=== PATIENT | female | born 1940 | race Caucasian/White ===

== ENCOUNTER → 2017-02-26 | Outpatient (CLI) | payer MEDICARE, BC ==
--- NOTE | 2017-02-26 15:42 | RADRPT ---
PROCEDURE: RIGHT knee x-ray CLINICAL INDICATION: PAIN TECHNIQUE: AP weightbearing, sunrise, oblique and lateral views of the knee were obtained. COMPARISON: None FINDINGS: The soft tissues and bony elements are normal. No joint space effusion is noted. The joint spaces a re normal. IMPRESSION: Normal x-ray of the right knee. RPTAT:AAJJ Physician Pilar Date Time Electronically viewed and signed by Rickie Carter Physician on 02/26/2017 15:42 /
== END | disposition home or self-care (01) ==
LOC: HKI 15:39
PROVIDERS: ATTEND Orthopaedic Surgery
DX: M25.561 Pain in right knee (principal)
CPT/HCPCS: G0463

== ENCOUNTER → 2017-04-18 | Outpatient (CLI) | payer MEDICARE, BC ==
[~2017-04-18] MED LIST: EST42.5C VAG; ESTR50G TD; LOSA25TA5 PO
== END | disposition home or self-care (01) ==
LOC: HKI 09:24
PROVIDERS: ATTEND Orthopaedic Surgery
DX: M25.561 Pain in right knee (principal); S83.231A Complex tear of medial meniscus, current injury, right knee, initial encounter
CPT/HCPCS: G0463

== ENCOUNTER 2017-04-24 09:47 | Day surgery (SDC) | payer MEDICARE, BC ==
[2017-04-24] VITALS (12 sets, daily range): BP systolic 112–158; BP diastolic 51–73; PULSE 75–94; RESP 10–25
[~2017-04-24] VITALS: Ht 300.5 cm; Wt 57.6 kg
[~2017-04-24 09:47] MED LIST changes: +CEFAZOLIN 2GM/50 ML (PMX) 50 ML X1 BEFORE INCISION IVPB SCH; +CELECOXIB 400 MG PO X1 DOSE PO SCH; -EST42.5C VAG; -ESTR50G TD; +LACTATED RINGER'S 1,000 ML IV SCH; -LOSA25TA5 PO; +PREGABALIN 300 MG PO X1 PO SCH; +SUGAMMADEX SODIUM 200 MG/2 ML VIAL IV ONE; +oxyCODONE (CR) 10 MG TAB [oxyCONTIN] X1 DOSE PO SCH; +traMADOL 50 MG TAB X 1 DOSE PO SCH
[2017-04-24] MEDS ORDERED: LOSA25TA5 PO (10:31)
[2017-04-24] MEDS ORDERED: ESTR50G TD (10:32)
[2017-04-24] MEDS ORDERED: EST42.5C VAG (10:33)
[2017-04-24] MEDS ORDERED: ONDANSETRON 4 MG INJ IV STA (11:09)
[2017-04-24] MEDS ORDERED: PROPOFOL 20 ML ONE (11:16)
[2017-04-24] MEDS ORDERED: CEFAZOLIN 1 GM INJ ONE (11:16)
[2017-04-24] MEDS ORDERED: GLYCOPYRROLATE 0.4 MG INJ ONE (11:16)
[2017-04-24] MEDS ORDERED: NEOSTIGMINE 3 MG/3 ML SYRINGE ONE (11:16)
[2017-04-24] MEDS ORDERED: ROCURONIUM 50 MG INJ ONE (11:16)
[2017-04-24] MEDS ORDERED: MIDAZOLAM 1 MG/ML 2 ML INJ ONE (11:16)
[2017-04-24] MEDS ORDERED: ONDANSETRON 4 MG INJ ONE (11:17)
[2017-04-24] MEDS ORDERED: FENTAnyl 50 MCG/ML VIAL ONE (11:17)
[2017-04-24] MEDS ORDERED: DEXAMETHASONE 4 MG/ML 1 ML INJ ONE (11:17)
--- NOTE | 2017-04-24 12:49 | HPN ---
Date/Time of Note Date/Time of Note DATE: 04/24/17 TIME: 12:48 Interval H&P Admission Note Pt. seen H&P reviewed: No system changes No changes from H&P on 04/17/17 by GALDINO Heard MD Apr 24, 2017 12:49
[2017-04-24] MEDS ORDERED: morphine SULFATE/PF (10 MG/10 ML) INJ ONE (12:58)
[2017-04-24] MEDS ORDERED: ROPIVACAINE 0.5 % 30 ML VIAL ONE (12:58)
[2017-04-24] MEDS ORDERED: KETOROLAC 30 MG INJ ONE (12:58)
[2017-04-24] MEDS ORDERED: LIDOCAINE 1% (MPF) 30 ML INJ ONE (12:58)
[2017-04-24] MEDS ORDERED: LABETALOL HCL 20MG INJ IV PRN (13:30)
[2017-04-24] MEDS ORDERED: DIPHENHYDRAMINE 50 MG INJ IV PRN (13:30)
[2017-04-24] MEDS ORDERED: MEPERIDINE 25 MG INJ IV PRN (13:30)
[2017-04-24] MEDS ORDERED: OXYCODONE/ACETAMINOPHEN (5/325) TAB PO PRN ×2 (13:30)
[2017-04-24] MEDS ORDERED: TRIMETHOBENZAMIDE 100 MG/ML VIAL IM PRN (13:30)
[2017-04-24] MEDS ORDERED: MIDAZOLAM 1 MG/ML 2 ML INJ IV PRN (13:30)
[2017-04-24] MEDS ORDERED: EPHEDrine SULFATE 50 MG/5 ML SYG IV PRN (13:30)
[2017-04-24] MEDS ORDERED: ONDANSETRON 4 MG INJ IV PRN (13:30)
[2017-04-24] MEDS ORDERED: HYDROmorphONE (0.2 MG/ML) 10ML SYG IV PRN ×3 (13:30)
[2017-04-24] MEDS ORDERED: FENTAnyl 50 MCG/ML VIAL IV PRN ×3 (13:30)
[2017-04-24] MEDS ORDERED: hydrALAzine 20 MG INJ IV PRN (13:30)
--- NOTE | 2017-04-24 14:54 | OPR ---
Date/Time of Note Date/Time of Note DATE: 04/24/17 TIME: 14:53 Operative Report Free Text/Dictation Dictation # [id number] Preoperative Diagnosis Right Knee MM Tear Postoperative Diagnosis Right Knee MM and LM Tear Operation/Procedure Performed Right Knee A/S and Partial MM and LM Surgeon: GALDINO EDWARD MD Anesthesia: general Estimated Blood Loss: none Complications: None GALDINO EDWARD MD Apr 24, 2017 14:54
[2017-04-24] MEDS ORDERED: ESTRADIOL XX SCH (15:00)
--- NOTE | 2017-04-24 15:22 | OPR ---
DATE OF OPERATION: 04/24/2017 PREOPERATIVE DIAGNOSIS: Right knee medial meniscal tear. POSTOPERATIVE DIAGNOSIS: Right knee medial meniscus tear and free edge tearing of lateral meniscus. PROCEDURE: Right knee arthroscopy, partial medial and lateral meniscectomies. SURGEON: Galdino Dailey MD ANESTHESIA: General endotracheal intubation. ANESTHESIOLOGIST: Dr. Taylor. TOURNIQUET TIME: 0 minutes. ESTIMATED BLOOD LOSS: Scant. INTRAVENOUS FLUIDS: 800 mL crystalloid. SPECIMENS: None. DRAINS: None. COMPLICATIONS: None. DISPOSITION: The patient tolerated the procedure well and was taken to the recovery room in stable condition. INDICATIONS: The patient is a 76-year-old woman who has had pain in the right knee with mechanical symptoms of catching and popping. An MRI arthrogram revealed a recurrent medial meniscus tear. I f elt she would benefit from a knee arthroscopy and partial medial meniscectomy. The risks, benefits, and alternatives of the procedure were explained in detail to the patient. I explained the risks t o include but not be limited to bleeding, infection, pain, stiffness, neurovascular injury, possible numbness, weakness, and/or paralysis anywhere from the knee down to the toes, fracture, ligamentous injury, need for additional future surgery including possible total knee arthroplasty, wound healin g problems, blood clots, pulmonary embolism, and anesthetic complications such as heart attack, stro ke, GI bleed, pneumonia, and/or . Ample time was allowed for the patient to ask questions, all of which were addressed and answered. The patient understood the risks involved and wished to proc eed. Informed consent was signed prior to the procedure. DESCRIPTION OF PROCEDURE: The right knee was initialed with a marking pen in the preoperative holdi ng area to identify the correct operative site. The patient was then brought to the operating room and transferred [facility] to the operating table where she was anesthetized and intub ated. Time out was performed to confirm the right side was the correct operative site. The superol ateral aspect of the right knee was prepped with Betadine and injected 30 mL of 0.5% ropivacaine wit h epinephrine into the knee joint. A tourniquet was placed on the right proximal thigh. The entire right knee and lower extremity were prepped and draped in usual sterile fashion. The patient had b een given 2 grams of intravenous Ancef within 1 hour prior to the incision. Standard arthroscopic portal incisions were made. The arthroscope was introduced into the inferolat eral portal and the arthroscopy initiated. The suprapatellar pouch was inspected and free of loose bodies and synovitis. The undersurface of the patella looked healthy with mild grade II chondromala danuta. The patella tracked well with no tilt or subluxation. The medial and lateral gutters were ins pected and free of loose bodies and synovitis. The medial compartment was then inspected, and there was a large diffuse area of the weightbearing aspect of the medial femoral condyle with grade IV ch ondromalacia. There was a tear of the medial meniscus extending from the posterior horn to the body . This was debrided back to a stable edge with a combination of the biter shaver and Arthrocare wan d. It was probed and was stable. There was some grade II chondromalacia along the medial tibial pl ateau. The inner trochlear notch was inspected, and the ACL and PCL were in normal position. The l ateral compartment was inspected, and there was some free edge tearing of the lateral meniscus which was debrided back to a stable edge with the shaver and Arthrocare wand. The lateral femoral condyl e and lateral tibial plateau looked healthy with no degenerative changes. At this point, the knee w as irrigated through the arthroscope until the egress of fluid was free of meniscal fragments and bl ood. The instruments were removed. The knee was injected with a mixture of 0.5% ropivacaine, 4 mg Duramorph, and 30 mg Toradol. The portal incisions were closed with interrupted 3-0 Monocryl and 3- 0 Prolene in a vertical mattress fashion. Skin edges were sealed with Dermabond. The wounds were c overed with Adaptic, 4 x 4s, and wrapped in sterile cast padding and an Tiburcio wrap. The patient was a wakened, extubated, and taken to the recovery room in stable condition. Dictated By: GALDINO OROZCO/MAMADOU Conf#: [id number] DID#: [id number]
--- NOTE | 2017-04-25 07:03 | HP ---
DATE OF ADMISSION: 04/24/2017 HISTORY OF PRESENT ILLNESS: The patient is a 76-year-old female with diagnosis of a right knee medi al meniscal tear, scheduled for right knee arthroscopic partial medial meniscectomy to be performed by Dr. Galdino Edward at [facility] on 04/24/2017. The patient has hypertension, mitral regurgitation as well as aortic regurgitation, and has been fol lowed by Dr. Jonas Oreilly, cardiology, in the past. She last saw Dr. Oreilly on 10/17/2016. The [place] has been noted to have 1+ aortic insufficiency, 2+ mitral regurgitation and atrial septal aneu rysm on 2D echocardiography. The patient has no acute cardiorespiratory symptoms. PAST MEDICAL HISTORY: Usual childhood diseases. PAST SURGICAL HISTORY: Cosmetic surgery, tubal ligation, D and C, and hysterectomy. MEDICATIONS: 1. Cozaar 25 mg daily. 2. Estrogel daily topically. 3. Estrace cream once a week. SOCIAL HISTORY: Tobacco: Quit smoking many years ago. Alcohol: Rare, social. ALLERGIES: THE PATIENT IS ALLERGIC TO: 1. NEOSPORIN. 2. LATEX. 3. NEOMYCIN. REVIEW OF SYSTEMS: Benign thyroid nodule biopsy 12/2012; history of facial allergic rash. History of lumbar disk disease and history of liver cysts. Sees , endocrinology, once a year queta ding the thyroid nodules which are stable. She also had a CT scan of the chest which revealed minim al centrilobular emphysema, but in the past. She has no cardiopulmonary symptoms, however. She lexus ys tennis without any respiratory symptoms. She recently had a cold sore on her right upper lip whi ch is healing. FAMILY HISTORY: Mother of colon cancer. Father of aplastic anemia. PHYSICAL EXAMINATION: VITAL SIGNS: On date of exam 04/10/2017, temperature 97.6, blood pressure 128/80. HEENT: Head: Normal. Eyes: Pupils are equal, round and reactive to light. Ears: TMs are normal . NECK: Supple. There is no neck vein distention. Carotids are 2+ and equal. No bruits. CHEST: Clear to auscultation and percussion. HEART: Normal 1st and 2nd heart sounds. There is a I/ systolic murmur along the left sternal bor adrian. There is no gallop or rub audible. BREASTS/PELVIC: Examination deferred to her switch inspector. ABDOMEN: Soft. No tenderness. Kidney, liver and spleen are not palpable. Bowel sounds are normal . BACK: Reveals no evidence of CVA tenderness or edema. EXTREMITIES: Reveal no evidence of edema or phlebitis. ORTHOPEDIC AND KNEE: Examination deferred to Dr. Edward. NEUROLOGIC: Physiologic. LABORATORY DATA: Preoperative CBC, chemistry panel, pro time, PTT are normal. Preoperative chest x -ray is unremarkable. See attached reports of labs and chest x-ray. EKG done on 04/10/2017, normal sinus rhythm, normal EKG. IMPRESSION: 1. Right knee medial meniscal tear per Dr. Edward. 2. Mitral regurgitation, aortic insufficiency, and atrial septal aneurysm on 2D echocardiography. 3. Hypertension. 4. History of lumbar disk disease. 5. History of benign thyroid nodule biopsied. 6. History of liver cysts. 7. History of centrilobular emphysema on CT scan of the chest, but no respiratory symptoms. PLAN: See attached EKG, lab and chest x-ray reports. The patient is cleared for surgery to be perf ormed by Dr. Edward. Dr. Malia Neff MD dictating Pre-Operative History and Physical for Dr. Galdino Edward MD Dictated By: GALDINO EDWARD MD EZ/NTS Conf#: [id number] DID#: [id number] CC: MALIA NEFF MD;*EndCC*
[2017-04-25] MEDS ORDERED: LOSARTAN 25 MG TAB PO SCH (09:00)
[2017-04-25] MEDS ORDERED: ESTRADIOL XX SCH (09:00)
== END 2017-04-24 16:20 | disposition home or self-care (01) ==
LOC: SDS 09:47
PROVIDERS: ATTEND Orthopaedic Surgery
DX: M23.221 Derangement of posterior horn of medial meniscus due to old tear or injury, right knee (principal); I10 Essential (primary) hypertension
CPT/HCPCS: 29881; 87081; J0690; J1100; J1885; J2250; J2274; J2405; J2795; J3010; J2710

== ENCOUNTER → 2017-05-02 | Outpatient (CLI) | payer MEDICARE, BC ==
[~2017-05-02] MED LIST changes: -CEFAZOLIN 2GM/50 ML (PMX) 50 ML X1 BEFORE INCISION IVPB SCH; -CELECOXIB 400 MG PO X1 DOSE PO SCH; +EST42.5C VAG; +ESTR50G TD; -LACTATED RINGER'S 1,000 ML IV SCH; +LOSA25TA5 PO; -PREGABALIN 300 MG PO X1 PO SCH; -SUGAMMADEX SODIUM 200 MG/2 ML VIAL IV ONE; -oxyCODONE (CR) 10 MG TAB [oxyCONTIN] X1 DOSE PO SCH; -traMADOL 50 MG TAB X 1 DOSE PO SCH
== END | disposition home or self-care (01) ==
LOC: HKI 09:51
PROVIDERS: ATTEND Orthopaedic Surgery
DX: Z47.1 Aftercare following joint replacement surgery (principal); Z96.651 Presence of right artificial knee joint; M25.561 Pain in right knee

== ENCOUNTER → 2017-05-30 | Outpatient (CLI) | payer MEDICARE, BC ==
--- NOTE | 2017-05-30 10:57 | PN ---
Date/Time of Note Date/Time of Note DATE: 05/30/17 TIME: 10:55 Assessment/Plan VTE Prophylaxis VTE Prophylaxis Intervention: ambulation Assessment/Plan Assessment/Plan ASSESSMENT: 5 weeks status post right knee arthroscopy and partial medial meniscectomy PLAN: I do feel that some of the discomfort she is having on the medial joint line is residual from the surgery secondary to inflammation at the surgical site. She is progressing well with physical therapy and her pain is improving overall. She would like to continue doing physical therapy in the interim. We went ahead and gave her a new prescription for PT today, which she can continue if she would like. She is to continue taking [id number]-fow-tyeulup anti- inflammatories for pain as needed. We will see her back in 6 weeks just to recheck and make sure her pain and symptoms are resolving. Subjective 24 Hr Interval Summary Free Text/Dictation The patient presents today for another postop evaluation on her right knee. She is now 5 weeks status post right knee arthroscopy and partial medial meniscectomy. She is doing better overall, but still has some medial sided right knee pain. She has been doing physical therapy at in [place]. She denies any fevers or chills. She denies any mechanical symptoms. She would like to continue doing physical therapy. She is not taking any pain medicine however. She presents today for a postoperative evaluation on her right knee. Exam/Review of Systems Exam On exam today, she is alert and oriented 4, in no acute distress. Range of motion is 0-130. There is some mild tenderness along the medial joint line. There is no lateral joint line tenderness. There is no effusion. Varus and valgus forces are stable. She is neurovascularly intact distally. MADONNA HOANG PA-C May 30, 2017 10:57
== END | disposition home or self-care (01) ==
LOC: HKI 08:52
PROVIDERS: ATTEND Orthopaedic Surgery
DX: Z47.1 Aftercare following joint replacement surgery (principal); Z96.651 Presence of right artificial knee joint; M25.561 Pain in right knee